=== PATIENT | female | born 1965 | race Two or more races ===

== ENCOUNTER 2019-04-27 08:52 | Day surgery (SDC) | payer MEDICARE, MEDICAID ==
[~2019-04-27] VITALS: Ht 149.9 cm; Wt 51.7 kg
[2019-04-27] VITALS (8 sets, daily range): BP systolic 102–138; BP diastolic 60–82
--- NOTE | 2019-04-27 08:02 | Anethesia Preoperative Eval ---
Anesthesia Pre-op PMH/ROS General Date of Evaluation: Apr 27, 2019 Anesthesiologist: Les ASA Score: ASA 4 Mallampati Score Class I : Soft palate, uvula, fauces, pillars visible Class II: Soft palate, uvula, fauces visible Class III: Soft palate, base of uvula visible Class IV: Only hard plate visible Mallampati Classification: Class II Surgeon: Aruna Diagnosis: pancreatitis Surgical Procedure: EGD and EUS Anesthesia History: none Family History: no anesthesia problems Allergies: Coded Allergies: No Known Allergies (Unverified , 04/27/19) Medications: see eMAR Patient NPO?: Yes NPO Date: Apr 27, 2019 NPO Time: 00:00 Past Medical History Cardiovascular: Reports: HTN, arrhythmia - complete heart block, EF 10%, s/p pacemaker vs likely AICD, other - HLD; Denies: CAD, [place], valve dz Pulmonary: Denies: asthma, COPD, KRISTIAN, other Gastrointestinal/Genitourinary: Reports: GERD - gastritis, other - hiatal hernia, pancreatitis; Denies: CRI, ESRD Neurologic/Psychiatric: Reports: 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 Exam Physician Exam see chart Constitutional: NAD Cardiovascular: RRR Respiratory: CTA Airway Exam Mallampati Score: Class III MO: limited ROM: limited Anesthesia Pre-op A/P Labs see chart Studies Pre-op Studies: EKG - AV dual-paced rhythm Risk Assessment & Plan Assessment: ASA III Plan: MAC Status Change Before Surgery: No Pre-Antibiotics Drug: N/A Nai Chacon MD Apr 27, 2019 08:02
[~2019-04-27 08:52] MED LIST: LR 1000ml 1,000 ML IVLG SCH
--- NOTE | 2019-04-27 09:25 | Short Stay Surgery H&P ---
History of Present Illness History of Present Illness Chief Complaint see recent consult note HPI Liz Page is a 53 year old female who was admitted on for Pancreatitis Patient History Allergies: Uncoded Allergies: anesthesia (Adverse Reaction, Severe, vomiting, 04/27/19) Plan Attestation Are the patient's medical conditions optimized for surgery? Fredrick Valdovinos MD Apr 27, 2019 09:25
--- NOTE | 2019-04-27 09:26 | Pre-Procedure Note/Attestation ---
Pre-Procedure Note/Attestation Complete Prior to Procedure Planned Procedure: not applicable Procedure Narrative: EGD/EUS Indications for Procedure Pre-Operative Diagnosis: GERD, pancreatic lesion Attestation I attest that I discussed the nature of the procedure; its benefits; risks and complications; and alternatives (and the risks and benefits of such alternatives ), prior to the procedure, with the patient (or the patient's legal business banking representative). I attest that, if there was a reasonable possibility of needing a blood transfusion, the patient (or the patient's legal business banking representative) was given the [facility] standardized written summary, pursuant to the Willy Lufkin Blood Safety Act ([place] Health and Safety Code # 1645, as amended). I attest that I re-evaluated the patient just prior to the surgery and that there has been no change in the patient's H&P, except as documented below: Fredrick Valdovinos MD Apr 27, 2019 09:26
[2019-04-27] MEDS ORDERED: CLOPIDOGREL75 MG ORAL (09:44)
[2019-04-27] MEDS ORDERED: LISINOPRIL10 MG ORAL (09:44)
[2019-04-27] MEDS ORDERED: CARVEDILOL25 MG ORAL (09:44)
[2019-04-27] MEDS ORDERED: ATORVASTATIN CA40 MG ORAL (09:44)
[2019-04-27] MEDS ORDERED: linzess PO (09:44)
[2019-04-27] MEDS ORDERED: PANTOPRAZOLE SO40 MG ORAL (09:44)
[2019-04-27] MEDS ORDERED: DICYCLOMINE HCL10 MG ORAL (09:44)
[2019-04-27] MEDS ORDERED: LR 1000ml 1,000 ML IVLG SCH (10:30)
[2019-04-27] MEDS ORDERED: DiphenhydrAMINE 50mg/ml Inj IVP PRN (10:30)
[2019-04-27] MEDS ORDERED: Lidocaine 1% MPF 10mg/ml 5ml ONE (11:00)
[2019-04-27] MEDS ORDERED: Dexamethasone 4mg/ml vial ONE (11:00)
[2019-04-27] MEDS ORDERED: Propofol 200mg/20ml IV ONE (11:00)
[2019-04-27] MEDS ORDERED: LR 1000ml ONE (11:00)
[2019-04-27] MEDS ORDERED: Metoclopramide 10mg/2ml Inj ONE (11:00)
--- NOTE | 2019-04-27 11:12 | Endoscopy Procedure Note ---
Endoscopy Procedure Note General Indication for Procedure: abd pain, GERD, panc lesion Procedures Performed: EGD, colonoscopy Operative Findings/Diagnosis: gastritis Specimen: yes Pt Tolerated Procedure Well: Yes Estimated Blood Loss: none Anesthesia Anesthesiologist: elaine Anesthesia: MAC Inserted Devices Implant(s) used?: No GI Core Measures 50 yrs or older w/o bx or poly: Not Applicable 10yrs. F/U recommended: Not Applicable Fredrick Valdovinos MD Apr 27, 2019 11:12
--- NOTE | 2019-04-27 11:55 | Immediate Post-Op Evaluation ---
Immediate Post-Op Evalulation Immediate Post-Op Evalulation Procedure: EGD and EUS Date of Evaluation: Apr 27, 2019 Time of Evaluation: 11:54 IV Fluids: 500 Blood Products: 0 Estimated Blood Loss: 0 Urinary Output: 0 Blood Pressure Systolic: 110 Blood Pressure Diastolic: 60 Pulse Rate: 65 Respiratory Rate: 16 O2 Sat by Pulse Oximetry: 100 Temperature (Fahrenheit): 97.3 Pain Score (1-10): 0 Nausea: No Vomiting: No Complications 0 Patient Status: awake, reacts, patent, none Hydration Status: adequate Drug: N/A Nai Chacon MD Apr 27, 2019 11:55
--- NOTE | 2019-04-27 11:56 | 48 Hour Post Anesthesia Eval ---
Post Anesthesia Evaluation Procedure: EGD and EUS Date of Evaluation: Apr 27, 2019 Airway: patent Nausea: No Vomiting: No Pain Intensity: 0 Hydration Status: adequate Cardiopulmonary Status: at baseline Mental Status/LOC: patient returned to baseline Post-Anesthesia Complications: 0 Follow-up care needed: ready to discharge Nai Chacon MD Apr 27, 2019 11:56
[2019-04-27 12:45] LABS: ALANINE AMINOTRANSFERASE 32 U/L (12-78); ALBUMIN 4.2 G/DL (3.4-5.0); ALBUMIN/GLOBULIN RATIO 1.2 (1.0-2.7); ALKALINE PHOSPHATASE 80 U/L (46-116); AMYLASE 82 U/L (25-115); ANION GAP 10 mmol/L (5-15); ASPARTATE AMINO TRANSFERASE 28 U/L (15-37); BILIRUBIN,TOTAL 0.6 MG/DL (0.2-1.0); BLOOD UREA NITROGEN 15 mg/dL (7-18); CALCIUM 9.4 MG/DL (8.5-10.1); CARBON DIOXIDE 28 MMOL/L (21-32); CHLORIDE 106 MMOL/L (98-107); CREATININE 0.6 MG/DL (0.55-1.30); POTASSIUM 3.5 MMOL/L (3.5-5.1); SODIUM 144 MMOL/L (136-145)
[2019-04-27 13:07] LABS: BASOPHILS % (AUTO) 1.1 % (0.0-2.0); EOSINOPHILS % (AUTO) 1.2 % (0.0-3.0); HEMATOCRIT 38.6 % (37.0-47.0); HEMOGLOBIN 14.1 G/DL (12.0-16.0); LYMPHOCYTES % (AUTO) 30.5 % (20.0-45.0); MEAN CORPUSCULAR VOLUME 89 FL (80-99); MONOCYTES % (AUTO) 6.9 % (1.0-10.0); NEUTROPHILS % (AUTO) 60.4 % (45.0-75.0); PLATELET COUNT 323 K/UL (150-450); RED BLOOD COUNT 4.31 M/UL (4.20-5.40); WHITE BLOOD COUNT 6.9 K/UL (4.8-10.8)
--- NOTE | 2019-04-27 19:01 | Procedure Note ---
DATE OF PROCEDURE: 04/27/2019 SURGEON: Fredrick Valdovinos M.D. PROCEDURE: Upper endoscopy with biopsy and EUS. ANESTHESIA: Per Dr. Saldana. INSTRUMENT: Olympus adult flexible EUS scope and upper endoscope. INDICATION: Abdominal pain, GERD, pancreatic lesion seen on the CT. The procedure, risks, benefits, and possible consequences, including hemorrhage, aspiration, perforation and infection, and alternative treatments, were explained to the patient/legal guardian by Dr. Fredrick Valdovinos and the patient/legal guardian understood and accepted these risks. PROCEDURE IN DETAIL: After informed consent was obtained and the patient was adequately sedated, Olympus upper endoscope was advanced from the mouth into the second portion of duodenum and retroflexion was performed in the stomach. The patient had diffuse gastritis. Random biopsy from antrum was obtained to rule out H. pylori infection. At this time, the upper endoscope was retrieved and EUS scope was introduced for endoscopic ultrasound. Starting scanning at GE junction, first celiac axis was evaluated. There was no obvious celiac axis lymphadenopathy. Pancreatic parenchyma was carefully examined while the scope was in the stomach. Body and tail of the pancreas was carefully examined there. Pancreatic parenchyma grossly looked within normal limits. There was an 8 mm cystic lesion in the body of the pancreas, most probably a simple cyst. This cyst did not seem to be arise from pancreatic duct. There was no pancreatic duct dilatation. When I close to the tail of the pancreas, there seemed to be a 3 cm lesion arising from the vessels around the pancreas, possible an aneurysm, but for definitive we will recommend CT angio. The endoscope was advanced into the second portion of duodenum and duodenal bulb for evaluation of the head of the pancreas. There was no obvious abnormality in the head of the pancreas. The patient tolerated the procedure very well without any complication. SUMMARY OF FINDINGS: 1. Gastritis, status post biopsy. 2. An 8 mm pancreatic cyst in the body of the pancreas, most likely simple cyst. 3. A 3 cm lesion around the tail of the pancreas. This seems to be arising from the vessels around the tail of the pancreas, possible an aneurysm, given prior history of the patient having aneurysm somewhere in the body, especially in the brain, but for further workup, we will recommend CT angio for diagnosis. Fredrick Devyn Valdovinos DR: NAWAF JOB#: [id number] CC:
== END 2019-04-27 13:00 | disposition home or self-care (01) ==
LOC: GAS 08:52
DX: R10.9 Unspecified abdominal pain (principal); K21.9 Gastro-esophageal reflux disease without esophagitis; K86.2 Cyst of pancreas; K29.50 Unspecified chronic gastritis without bleeding
CPT/HCPCS: 36415; 43237; 43239; 80053; 82150; 82378; 83690; 85025; 93005; J1100; J2405; J2704; J2765; J7120; 94003; 94150

== ENCOUNTER 2019-05-10 09:07 | Outpatient (CLI) | payer MEDICARE, MEDICAID ==
[~2019-05-10 09:07] MED LIST changes: +ATORVASTATIN CA40 MG ORAL; +CARVEDILOL25 MG ORAL; +CLOPIDOGREL75 MG ORAL; +DICYCLOMINE HCL10 MG ORAL; +LISINOPRIL10 MG ORAL; -LR 1000ml 1,000 ML IVLG SCH; +PANTOPRAZOLE SO40 MG ORAL; +linzess PO
[2019-05-10 09:23] VITALS: BP 108/69
--- NOTE | 2019-05-18 13:14 | General Progress Note ---
Assessment/Plan Assessment/Plan: s/p EUS SUMMARY OF FINDINGS: 1. Gastritis, status post biopsy. 2. An 8 mm pancreatic cyst in the body of the pancreas, most likely simple cyst. 3. A 3 cm lesion around the tail of the pancreas. This seems to be arising from the vessels around the tail of the pancreas, possible an aneurysm, given prior history of the patient having aneurysm somewhere in the body, especially in the brain, but for further workup, we will recommend CT angio for diagnosis plan CT angio cont Linzess 72 Subjective ROS Limited/Unobtainable: Yes Allergies: Coded Allergies: No Known Allergies (Unverified , 04/27/19) Objective General Appearance: alert EENT: normal ENT inspection Neck: normal alignment Cardiovascular: normal rate Respiratory/Chest: decreased breath sounds Abdomen: normal bowel sounds, non tender, soft Extremities: non-tender Fredrick Valdovinos MD May 18, 2019 13:14
== END 2019-05-10 13:36 | disposition home or self-care (01) ==
LOC: PAN 09:07
DX: R10.9 Unspecified abdominal pain (principal)
CPT/HCPCS: 99212

== ENCOUNTER → 2019-05-13 | Outpatient (CLI) | payer MEDICARE, MEDICAID ==
--- NOTE | 2019-05-10 13:41 | General Progress Note ---
Assessment/Plan Assessment/Plan: SUMMARY OF FINDINGS: 1. Gastritis, status post biopsy. 2. An 8 mm pancreatic cyst in the body of the pancreas, most likely simple cyst. 3. A 3 cm lesion around the tail of the pancreas. This seems to be arising from the vessels around the tail of the pancreas, possible an aneurysm, given prior history of the patient having aneurysm somewhere in the body, especially in the brain, but for further workup, we will recommend CT angio for diagnosis plan CT angio will plan colonoscopy after above cont Linzess 72 Subjective ROS Limited/Unobtainable: Yes Allergies: Coded Allergies: No Known Allergies (Unverified , 04/27/19) Objective General Appearance: alert EENT: normal ENT inspection Neck: supple Cardiovascular: normal rate Respiratory/Chest: decreased breath sounds Abdomen: normal bowel sounds, non tender, soft Extremities: non-tender Fredrick Valdovinos MD May 10, 2019 13:41
--- NOTE | 2019-05-13 10:16 | Diagnostic Imaging Report ---
Clinical Indication: Abdominal pain, weight loss, prior history of 3 cm peripancreatic lesion suspicious for aneurysm Technique: No oral contrast, per protocol. IV administration nonionic contrast. Arterial phase spiral acquisition obtained through the abdomen and pelvis. Multiplanar and 3-D reconstructions were generated. Total dose length product 194 mGycm. CTDIvol(s) 6, 51, 3 mGy. Dose reduction achieved using automated exposure control Comparison: none Findings: The abdominal aorta is normal in caliber. There is minimal mural calcification. No evidence of aneurysm or dissection demonstrated. There is normal caliber and branching anatomy of the celiac axis and proximal branches. The splenic artery is unremarkable, and there is no evidence of aneurysm. The superior mesenteric artery demonstrates normal caliber. No evidence of branch aneurysm demonstrated. There are dual left and single right renal arteries, all of which are patent, nonstenotic. Patent nonstenotic inferior mesenteric artery. Patent nonstenotic bilateral common, internal, and external iliac arteries. Patent nonstenotic bilateral common femoral arteries and proximal superficial femoral and profunda femoral arteries. The pancreas is unremarkable on arterial phase images. There is a focal centimeter lobulation of the anterior pancreatic tail, but appearance is suggestive of a combination of normal pancreatic parenchyma and incompletely opacified splenic vein rather than a mass. No evidence of hepatic mass or other abnormalities noted. No peripancreatic mass or adenopathy. The liver demonstrates a very subtle tiny focus of high attenuation in the tip of the right hepatic lobe, segment 5. It also demonstrates a subcentimeter low-attenuation lesion in the posterior periphery of segment 7. The liver is hypoattenuating relative to spleen. The spleen, adrenals are unremarkable. The kidneys demonstrate contour lobulations bilaterally, more so on the right than on the left, likely indicating cortical scarring. No retroperitoneal or mesenteric mass or adenopathy. No pelvic mass or adenopathy. There is a calcification in the superior aspect of the uterine fundus. No evidence of colonic diverticulosis or diverticulitis. The appendix is normal. No small bowel distention. No free or loculated intraperitoneal gas or fluid is evident. The distal esophagus,, stomach, duodenum are unremarkable. The included lung bases demonstrate a granulomatous calcification in the right lower lobe. Some atelectasis or scarring is seen in the left lower lobe. Pacemaker wires are seen within the heart. The bones are unremarkable. Impression: No evidence of visceral artery or other aneurysm. No definite pancreatic lesion to explain stated clinical history Fatty liver Subcentimeter low-attenuation right lobe liver lesion, too small to characterize, most likely benign simple cyst or bile hamartoma Subtle small focal hyperattenuating abnormality of the right hepatic lobe, probably a so-called transient hepatic attenuation difference acute arterial portal shunting Renal contour lobulations, right greater than left, probably secondary to prior inflammation Incidental findings as noted, including old granulomatous disease at the right lung base, pacemaker, probable calcified fundal uterine fibroid The CT scanner at [facility] is accredited by the [employer] and the scans are performed using protocols designed to limit radiation exposure to as low as reasonably achievable to attain images of sufficient resolution adequate for diagnostic evaluation.
== END | disposition home or self-care (01) ==
LOC: CAT 07:46
DX: K29.70 Gastritis, unspecified, without bleeding (principal); K86.2 Cyst of pancreas
CPT/HCPCS: 74175; G0463; Q9967; 99212

== ENCOUNTER 2019-05-24 08:43 | Outpatient (CLI) | payer MEDICARE, MEDICAID ==
[2019-05-24 09:04] VITALS: BP 97/60
--- NOTE | 2019-05-24 11:32 | General Progress Note ---
Assessment/Plan Assessment/Plan: Assessment/Plan Assessment/Plan: s/p EUS SUMMARY OF FINDINGS: 1. Gastritis, status post biopsy. 2. An 8 mm pancreatic cyst in the body of the pancreas, most likely simple cyst. 3. A 3 cm lesion around the tail of the pancreas. This seems to be arising from the vessels around the tail of the pancreas, possible an aneurysm, given prior history of the patient having aneurysm somewhere in the body, especially in the brain, but for further workup, we will recommend CT angio for diagnosis plan CT angio>>> reviewed cont Linzess 72 plan EGD and colonoscopy add elavil 25 mg cont prn bentyl Subjective ROS Limited/Unobtainable: Yes Allergies: Coded Allergies: No Known Allergies (Unverified , 04/27/19) Objective Last 24 Hour Vital Signs Date Time Temp Pulse Resp B/P (MAP) Pulse Ox O2 Delivery O2 Flow Rate FiO2 05/24/19 09:04 97.6 16 97/60 (72) 99 General Appearance: alert EENT: normal ENT inspection Neck: supple Cardiovascular: normal rate Respiratory/Chest: lungs clear Abdomen: soft, hypoactive bowel sounds, tender Extremities: non-tender Fredrick Valdovinos MD May 24, 2019 11:32
--- NOTE | 2019-06-03 09:22 | Pre-Procedure Note/Attestation ---
Pre-Procedure Note/Attestation Complete Prior to Procedure Planned Procedure: not applicable Procedure Narrative: colonoscopy Indications for Procedure Pre-Operative Diagnosis: screening Attestation I attest that I discussed the nature of the procedure; its benefits; risks and complications; and alternatives (and the risks and benefits of such alternatives ), prior to the procedure, with the patient (or the patient's legal medical office representative). I attest that, if there was a reasonable possibility of needing a blood transfusion, the patient (or the patient's legal medical office representative) was given the [facility] standardized written summary, pursuant to the Willy [place]reamer Blood Safety Act ([place] Health and Safety Code # 1645, as amended). I attest that I re-evaluated the patient just prior to the surgery and that there has been no change in the patient's H&P, except as documented below: Fredrick Valdovinos MD Jun 03, 2019 09:22
--- NOTE | 2019-06-03 09:23 | Short Stay Surgery H&P ---
History of Present Illness History of Present Illness Chief Complaint see office note HPI Liz Lomax is a 54 year old female who was admitted on for Abd Pain Patient History Allergies: Coded Allergies: No Known Allergies (Unverified , 04/27/19) Medication History Scheduled Atorvastatin Calcium* (Atorvastatin Calcium*), 40 MG ORAL BEDTIME, (Reported) Carvedilol* (Carvedilol*), 25 MG ORAL EVERY 12 HOURS, (Reported) Clopidogrel* (Clopidogrel*), 75 MG ORAL DAILY, (Reported) Dicyclomine Hcl* (Dicyclomine Hcl*), 10 MG ORAL BID, (Reported) Lisinopril* (Lisinopril*), 10 MG ORAL DAILY, (Reported) Pantoprazole* (Pantoprazole*), 20 MG ORAL DAILY, (Reported) [linzess], 72 MG PO DAILY, (Reported) Plan Attestation Are the patient's medical conditions optimized for surgery? Fredrick Valdovnios MD Jun 03, 2019 09:23
== END 2019-05-24 10:43 | disposition home or self-care (01) ==
LOC: PAN 08:43
DX: K29.70 Gastritis, unspecified, without bleeding (principal); K86.2 Cyst of pancreas
CPT/HCPCS: 99212

== ENCOUNTER 2019-06-03 07:48 | Day surgery (SDC) | payer MEDICARE, MEDICAID ==
[~2019-06-03] VITALS: Ht 149.9 cm; Wt 51.3 kg
[2019-06-03] VITALS (10 sets, daily range): BP systolic 98–128; BP diastolic 52–69
[2019-06-03] MEDS ORDERED: Lidocaine 1% MPF 10mg/ml 5ml ONE (09:30)
[2019-06-03] MEDS ORDERED: LR 1000ml ONE (09:30)
[2019-06-03] MEDS ORDERED: Propofol 200mg/20ml IV ONE (09:30)
--- NOTE | 2019-06-03 09:44 | Anethesia Preoperative Eval ---
Anesthesia Pre-op PMH/ROS General Date of Evaluation: Jun 03, 2019 Time of Evaluation: 09:35 Anesthesiologist: Betty Shukla CRNA ASA Score: ASA 3 Mallampati Score Class I : Soft palate, uvula, fauces, pillars visible Class II: Soft palate, uvula, fauces visible Class III: Soft palate, base of uvula visible Class IV: Only hard plate visible Mallampati Classification: Class II Surgeon: rAuna Diagnosis: GERD, colon screening Surgical Procedure: Colonoscopy Anesthesia History: none Family History: no anesthesia problems Allergies: Coded Allergies: No Known Allergies (Unverified , 04/27/19) Medications: see eMAR Patient NPO?: Yes NPO Date: Jun 03, 2019 NPO Time: 00:00 Past Medical History Cardiovascular: Reports: HTN, CAD, arrhythmia, other - AICD, hypercholesterolemia; Denies: [place], valve dz Pulmonary: Denies: asthma, COPD, KRISTIAN, other Gastrointestinal/Genitourinary: Reports: GERD; Denies: CRI, ESRD, other Neurologic/Psychiatric: Reports: CVA - LT sided weakness, depression/anxiety; Denies: dementia, TIA, other Endocrine: Denies: DM, hypothyroidism, steroids, other HEENT: Denies: cataract (L), cataract (R), glaucoma, [place] (L), GRINDSTONE (R), other Hematology/Immune: Denies: anemia, DVT, bleeding disorder, other Musculoskeletal/Integumentary: Reports: OA, other - chronic LBP; RT shoulder surgery; Denies: RA, DJD, DDD, edema PMH Narrative: as noted above PSxH Narrative: EGD/EUS; rt shoulder surgery Anesthesia Pre-op Phys. Exam Physician Exam Last Vital Signs Date Time Temp Pulse Resp B/P (MAP) Pulse Ox O2 Delivery O2 Flow Rate FiO2 06/03/19 08:48 Room Air 06/03/19 08:46 98.1 58 18 128/69 100 Constitutional: NAD Neurologic: other - alert & oriented x 3 Cardiovascular: RRR Respiratory: CTA Gastrointestinal: S/NT/ND Airway Exam Mallampati Score: Class II MO: full Neck: FROM TMD: > 3FB ROM: full Dentures: no upper, no lower Anesthesia Pre-op A/P Studies Pre-op Studies: EKG - AV dual paced rhythm; pacemaker Risk Assessment & Plan Assessment: ASA 3 ok to proceed Plan: MAC Status Change Before Surgery: No Pre-Antibiotics Given Within 1 Hr of Incision: No Betty Shukla CRNA Jun 03, 2019 09:44
--- NOTE | 2019-06-03 09:45 | Immediate Post-Op Evaluation ---
Immediate Post-Op Evalulation Immediate Post-Op Evalulation Procedure: Colonoscopy Date of Evaluation: Jun 03, 2019 Time of Evaluation: 10:22 IV Fluids: LR 500 ml Blood Pressure Systolic: 107 Blood Pressure Diastolic: 62 Pulse Rate: 61 Respiratory Rate: 24 O2 Sat by Pulse Oximetry: 100 Temperature (Fahrenheit): 97.6 Pain Score (1-10): 0 Nausea: No Vomiting: No Complications none Patient Status: awake, patent Hydration Status: adequate Given Within 1 Hr of Incision: Betty Grissom CRNA Jun 03, 2019 09:45
--- NOTE | 2019-06-03 10:13 | Endoscopy Procedure Note ---
Endoscopy Procedure Note General Indication for Procedure: screening Procedures Performed: colonoscopy Operative Findings/Diagnosis: hemorrhoids Specimen: yes Pt Tolerated Procedure Well: Yes Estimated Blood Loss: none Anesthesia Anesthesiologist: milan Anesthesia: MAC Inserted Devices Implant(s) used?: No Quality Quality of Bowel Preparation: Fair Did scope reach the cecum?: Yes Was there any complications?: No GI Core Measures 50 yrs or older w/o bx or poly: No 10yrs. F/U recommended: Yes If not recommended, why?: Above average risk 18 years or older w/prev. colo: No Fredrick Valdovinos MD Jun 03, 2019 10:13
--- NOTE | 2019-06-03 13:45 | 48 Hour Post Anesthesia Eval ---
Post Anesthesia Evaluation Procedure: Colonoscopy Date of Evaluation: Jun 03, 2019 Time of Evaluation: 13:45 Blood Pressure Systolic: 102 0: 52 Pulse Rate: 65 Respiratory Rate: 16 Temperature (Fahrenheit): 98.6 O2 Sat by Pulse Oximetry: 98 Airway: patent Nausea: No Vomiting: No Pain Intensity: 0 Hydration Status: adequate Cardiopulmonary Status: stable Follow-up Care/Observations: per GI Post-Anesthesia Complications: none Follow-up care needed: N/A Betty Shukla CRNA Jun 03, 2019 13:45
--- NOTE | 2019-06-03 15:15 | Procedure Note ---
DATE OF PROCEDURE: 06/03/2019 SURGEON: Fredrick Valdovinos M.D. PROCEDURE: Colonoscopy. ANESTHESIA: Per Betty PATEL. INSTRUMENT: Olympus adult flexible colonoscope. INDICATION: Screening colonoscopy. REASON FOR PROCEDURE: The procedure, risks, benefits, and possible consequences, including hemorrhage, aspiration, perforation and infection, and alternative treatments, were explained to the patient/legal guardian by Dr. Fredrick Valdovinos and the patient/legal guardian understood and accepted these risks. DESCRIPTION OF PROCEDURE: After informed consent was obtained and the patient was adequately sedated, first rectal exam was performed, which was normal. Then, the scope was advanced from the rectum into cecum and then subsequently to terminal ileum. Quality of prep overall was fair. No obvious pathology was seen. Normal TI. No obvious diverticulosis. No obvious mass or polyp was seen. Retroflexion in the rectum showed evidence of internal hemorrhoids. SUMMARY OF FINDINGS: 1. Fair colonic prep. 2. Internal hemorrhoids. RECOMMENDATIONS: Repeat colonoscopy in 5 years. Fredrick Valdovinos M.D. DR: GISELL JOB#: [id number] CC:
== END 2019-06-03 11:25 | disposition home or self-care (01) ==
LOC: GAS 07:48
DX: Z12.11 Encounter for screening for malignant neoplasm of colon (principal); K64.8 Other hemorrhoids; I11.9 Hypertensive heart disease without heart failure; Z95.810 Presence of automatic (implantable) cardiac defibrillator; E78.00 Pure hypercholesterolemia, unspecified; K21.9 Gastro-esophageal reflux disease without esophagitis; G81.94 Hemiplegia, unspecified affecting left nondominant side; F32.9 Major depressive disorder, single episode, unspecified; F41.9 Anxiety disorder, unspecified; M19.90 Unspecified osteoarthritis, unspecified site; Z95.0 Presence of cardiac pacemaker
CPT/HCPCS: 93005; G0121; J2704; J7120; 94003; 94150

== ENCOUNTER 2019-06-30 13:47 | Outpatient (CLI) | payer MEDICARE, MEDICAID ==
--- NOTE | 2019-06-30 14:04 | General Progress Note ---
Assessment/Plan Assessment/Plan: Assessment/Plan Assessment/Plan: s/p EUS SUMMARY OF FINDINGS: 1. Gastritis, status post biopsy. 2. An 8 mm pancreatic cyst in the body of the pancreas, most likely simple cyst. 3. A 3 cm lesion around the tail of the pancreas. This seems to be arising from the vessels around the tail of the pancreas, possible an aneurysm, given prior history of the patient having aneurysm somewhere in the body, especially in the brain, but for further workup, we will recommend CT angio for diagnosis plan CT angio>>> reviewed s/p EGD and colonoscopy c/o diarrhea N/V abd pain ? gastroenteritis hold laxatives for now add Creon Subjective ROS Limited/Unobtainable: Yes Allergies: Coded Allergies: No Known Allergies (Unverified , 04/27/19) Fredrick Valdovinos MD Jun 30, 2019 14:04
== END 2019-06-30 15:18 | disposition home or self-care (01) ==
LOC: PAN 13:47
DX: K29.70 Gastritis, unspecified, without bleeding (principal); K86.2 Cyst of pancreas; R19.7 Diarrhea, unspecified; R11.2 Nausea with vomiting, unspecified; R10.9 Unspecified abdominal pain

== ENCOUNTER → 2019-10-25 | Outpatient (CLI) | payer MEDICARE, MEDICAID ==
[~2019-10-25] MED LIST changes: +CREON DR 36,001 EACH PO
--- NOTE | 2019-10-25 09:19 | General Progress Note ---
Assessment/Plan Assessment/Plan: Assessment/Plan Assessment/Plan: s/p EUS SUMMARY OF FINDINGS: 1. Gastritis, status post biopsy. 2. An 8 mm pancreatic cyst in the body of the pancreas, most likely simple cyst. 3. A 3 cm lesion around the tail of the pancreas. This seems to be arising from the vessels around the tail of the pancreas, possible an aneurysm, given prior history of the patient having aneurysm somewhere in the body, especially in the brain, but for further workup, we will recommend CT angio for diagnosis plan CT angio>>> reviewed s/p EGD and colonoscopy linzess 72 xifaxan RTC 3 months Subjective ROS Limited/Unobtainable: Yes Allergies: Coded Allergies: No Known Allergies (Unverified , 04/27/19) Objective General Appearance: alert EENT: normal ENT inspection Neck: supple Cardiovascular: normal rate Respiratory/Chest: lungs clear Abdomen: normal bowel sounds, non tender, soft Extremities: non-tender Fredrick Valdovinos MD Oct 25, 2019 09:19
== END | disposition home or self-care (01) ==
LOC: PAN 09:09
DX: K29.70 Gastritis, unspecified, without bleeding (principal); K86.2 Cyst of pancreas; K86.9 Disease of pancreas, unspecified